=== PATIENT | male | born 1965 | race Caucasian/White ===

== ENCOUNTER 2021-08-05 10:14 | Emergency (ER) | payer MEDICARE ==
[2021-08-05] MEDS ORDERED: Zofran 4 MG/2 ML VIAL IV STA (10:23)
[2021-08-05] MEDS ORDERED: Sodium Chloride 0.9% 1000 ML 1,000 ML IV STA ×3 (10:23→17:00)
--- NOTE | 2021-08-05 10:54 | ERPHSYRPT ---
- History of Present Illness Time Seen by Provider: 08/05/21 10:20 Source: patient, family Exam Limitations: no limitations Patient Subjective Stated Complaint: Hypotension Triage Nursing Assessment: Patient brought back to ED via w/c and transferred to bed with assist of 1. Patient A+O X3. Patient's skin pale, cool and dry. Patient was at Dr. Berman's office and his blood pressure was 70/40 so patient was sent over for eval. Patient denies pain or discomfort. Lungs clear a/p anders. Physician History: Patient is a 56-year-old male who presents to the ER by wheelchair from Dr. Berman's office. He started in May of this year with an episode of sepsis which was due to a perforation of his colon and he did end up with an ileal ostomy. He was released from [facility] without surgery was done was readmitted with urinary tract sepsis in June. This time he has been out of [facility] for 2 days when his found his blood pressure to be very low at 70 he was tachycardic he was sweaty he was taken to the doctor's office where they had trouble getting a blood pressure at all. And he was immediately transferred to the ER. He has been told that the first episode of sepsis was from his bile the second from his urinary tract infection and now that he is some sort of a viral illness in the GI tract. We will try to obtain those records from [place]. 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 (Not documented) Associated Symptoms: diaphoresis, weakness, No abdominal pain, No chest pain, No cough, No nausea/vomiting, No rash, No shortness of breath Allergies/Adverse Reactions: No Known Drug Allergies Allergy (Unverified 08/05/21 16:35) Hx Influenza Vaccination/Date Given: No Hx Pneumococcal Vaccination/Date Given: No Immunizations Up to Date: Yes Travel Risk - International Travel Have you traveled outside of the country in past 3 weeks: No - Coronavirus Screening Are you exhibiting any of the following symptoms?: No Close contact with a COVID-19 positive Pt in past 14-21 Days: No - Vaccine Status Have you recieved a Covid-19 vaccination: No - Review of Systems Constitutional: Fever, Lethargy, Malaise, Night Sweats, Weakness, No Chills Eyes: No Symptoms Ears, Nose, & Throat: No Symptoms Respiratory: No Cough, No Dyspnea Cardiac: No Chest Pain, No Edema, No Syncope Abdominal/Gastrointestinal: No Abdominal Pain, No Nausea, No Vomiting, No Diarrhea Genitourinary Symptoms: No Dysuria Musculoskeletal: No Back Pain, No Neck Pain Skin: No Rash Neurological: No Dizziness, No Focal Weakness, No Sensory Changes Psychological: No Symptoms Endocrine: No Symptoms All Other Systems: Reviewed and Negative - Past Medical History Pertinent Past Medical History: Yes Neurological History: Stroke Cardiac History: No Pertinent History Respiratory History: No Pertinent History Endocrine Medical History: Diabetes Type II Musculoskeletal History: No Pertinent History GI Medical History: Esophageal Disorder, Other Psycho-Social History: Depression Male Reproductive Disorders: No Pertinent History Other Medical History: Stroke- May 2021. Ileostomy May 2021 - Past Surgical History Past Surgical History: Yes Neuro Surgical History: No Pertinent History Cardiac: Vascular Surgery Respiratory: No Pertinent History Gastrointestinal: No Pertinent History Genitourinary: No Pertinent History Musculoskeletal: No Pertinent History Male Surgical History: No Pertinent History Other Surgical History: aortic bypass 2017 - Social History Smoking Status: Former smoker Exposure to second hand smoke: No Drug Use: none Patient Lives Alone: No (lives with ex ) - Nursing Vital Signs Nursing Vital Signs: Initial Vital Signs Temperature 97.5 F 08/05/21 10:19 Pulse Rate 121 H 08/05/21 10:19 Respiratory Rate 18 08/05/21 10:19 Blood Pressure 85/63 08/05/21 10:19 O2 Sat by Pulse Oximetry 98 08/05/21 10:19 Pain Scale Pain Intensity 0 - Physical Exam General Appearance: mild distress, alert Eye Exam: PERRL/EOMI ENT Exam: normal ENT inspection, No pharyngeal erythema, No tonsillar exudate Neck Exam: supple, full range of motion, No meningismus Respiratory Exam: normal breath sounds, lungs clear, no respiratory distress Cardiovascular/Chest Exam: normal heart sounds, regular rate/rhythm, No murmur, No edema Gastrointestinal/Abdominal Exam: soft, non tender, no distention Extremity Exam: non-tender, normal range of motion, normal inspection, normal capillary refill Neurologic Exam: alert, oriented x 3, cooperative, bible teacher II-XII nml as tested, no rmal mood/affect, sensation nml, No motor deficits Skin Exam: normal color, warm, dry, No rash SpO2 Interpretation: normal SpO2: 98 O2 Delivery: Room Air Procedures - Central Line Time Of Procedure: 16:00 (Attempts were made to place subclavian central catheters both right and left without success.) Central Line Procedure: chlorahexadine prep, sterile drapes applied, Aseptic Technique Progress: After his failure to place a subclavian's on either the right or left side a sapna st x-ray was obtained which showed a pneumothorax on the right Dr. Frida Malik was called and did place a chest tube in the right hemithorax successfully. - Course Nursing assessment & vital signs reviewed: Yes EKG Interpreted by Me: RATE ([id number]), NORMAL AXIS, Non-specific ST Changes - Radiology Exams Chest X-ray Interpretation: Interpreted by me, Negative (Initial chest x-ray negat tio), Other (Post postprocedure chest x-ray shows a right pneumothorax) - CT Exams Abdomen/Pelvis CT Interpretation: Other (Chest CT was negative abdomen and pelvis was negative other than perhaps some inflammation inferior to the ostomy and thickened bladder wall.) Ordered Tests: Active Orders 24 hr Category Date Time Status CO2 Monitoring STAT Care 08/05/21 14:18 Completed EKG-ER Only STAT Care 08/05/21 10:23 Active IV Insertion STAT Care 08/05/21 10:23 Active ABDOMEN AND PELVIS W/0 CONTRAS [CT] Stat Exams 08/05/21 10:24 Completed CHEST 1 VIEW (PORTABLE) Stat Exams 08/05/21 10:24 Completed CHEST 1 VIEW (PORTABLE) Stat Exams 08/05/21 14:31 Completed CHEST 1 VIEW (PORTABLE) Stat Exams 08/05/21 16:30 Completed CHEST WITHOUT CONTRAST [CT] Stat Exams 08/05/21 10:31 Completed BLOOD CULTURE Stat Lab 08/05/21 11:14 Received CBC W DIFF Stat Lab 08/05/21 11:12 Completed CMP Routine Lab 08/05/21 11:12 Completed CULTURE,URINE Stat Lab 08/05/21 10:24 Received INFLUENZA A+B MARISEL Stat Lab 08/05/21 11:12 Completed Lactic Acid Stat Lab 08/05/21 11:16 Completed Lactic Acid Stat Lab 08/05/21 13:20 Completed Manual Differential NC Stat Lab 08/05/21 11:12 Completed [place] Screen Stat Lab 08/05/21 11:12 Completed TROPONIN Q3H Lab 08/05/21 11:12 Completed TROPONIN Q3H Lab 08/05/21 11:12 Completed TROPONIN Q3H Lab 08/05/21 16:15 Completed TROPONIN Q3H Lab 08/05/21 19:30 Ordered TROPONIN Q3H Lab 08/05/21 22:30 Ordered Standby STAT RT 08/05/21 14:56 Completed Medication Summary Generic Name Dose Route Start Last Admin Trade Name Freq PRN Reason Stop Dose Admin Sodium Chloride 1,000 mls @ 999 mls/hr 08/05/21 17:00 08/05/21 17:02 Sodium Chloride 0.9% 1000 Ml IV 08/05/21 18:00 999 mls/hr .Q1H1M STA Administration Discontinued Medications Generic Name Dose Route Start Last Admin Trade Name Freq PRN Reason Stop Dose Admin Flumazenil Confirm 08/05/21 13:13 Flumazenil 0.5 Mg/5 Ml Vial Administered 08/05/21 13:14 Dose 0.1 mg .ROUTE .STK-MED ONE Sodium Chloride 1,000 mls @ 999 mls/hr 08/05/21 10:23 08/05/21 12:31 Sodium Chloride 0.9% 1000 Ml IV 08/05/21 11:23 Infused .Q1H1M STA Infusion Sodium Chloride Confirm 08/05/21 11:03 Sodium Chloride 0.9% 1000 Ml Administered 08/05/21 11:04 Dose 1,000 mls @ ud .ROUTE .STK-MED ONE Sodium Chloride 1,000 mls @ 999 mls/hr 08/05/21 11:53 08/05/21 16:39 Sodium Chloride 0.9% 1000 Ml IV 08/05/21 12:53 Infused .Q1H1M STA Infusion Sodium Chloride Confirm 08/05/21 15:30 Sodium Chloride 0.9% 1000 Ml Administered 08/05/21 15:31 Dose 1,000 mls @ ud .ROUTE .STK-MED ONE Ceftriaxone Sodium/Dextrose 1 g in 50 mls @ 100 mls/hr 08/05/21 16:23 08/05/21 17:26 Rocephin 1 Gm-D5w 50 Ml Bag IV 08/05/21 16:52 Infused STAT STA Infusion Sodium Chloride Confirm 08/05/21 16:36 Sodium Chloride 0.9% 1000 Ml Administered 08/05/21 16:37 Dose 1,000 mls @ ud .ROUTE .STK-MED ONE Ceftriaxone Sodium/Dextrose Confirm 08/05/21 16:51 Rocephin 1 Gm-D5w 50 Ml Bag Administered 08/05/21 16:52 Dose 1 g in 50 mls @ ud IV .STK-MED ONE Lidocaine HCl Confirm 08/05/21 15:02 Lidocaine Hcl 1% 20 Ml Mdv 20 Ml Ml Administered 08/05/21 15:03 Dose 1 ml .ROUTE .STK-MED ONE Lidocaine HCl Confirm 08/05/21 16:23 Lidocaine Hcl 1% 20 Ml Mdv 20 Ml Ml Administered 08/05/21 16:24 Dose 1 ml .ROUTE .STK-MED ONE Midazolam HCl 10 mg 08/05/21 13:11 08/05/21 13:26 Midazolam Hcl 5 Mg/5 Ml Vial INTRANASAL 08/05/21 13:12 10 mg STAT ONE Administration Midazolam HCl Confirm 08/05/21 13:12 Midazolam Hcl 50 Mg/10 Ml Vial Administered 08/05/21 13:13 Dose 50 mg .ROUTE .STK-MED ONE Ondansetron HCl 4 mg 08/05/21 10:23 08/05/21 11:15 Ondansetron Hcl 4 Mg/2 Ml Vial IV 08/05/21 10:24 4 mg STAT STA Administration Ondansetron HCl Confirm 08/05/21 11:03 Ondansetron Hcl 4 Mg/2 Ml Vial Administered 08/05/21 11:04 Dose 4 mg .ROUTE .STK-MED ONE Lab/Rad Data: Laboratory Result Diagrams 08/05/21 11:12 08/05/21 11:12 Laboratory Results 08/05/21 08/05/21 08/05/21 Range/Units 16:15 14:22 13:20 WBC (4.0-10.5) K/mm3 RBC (4.1-5.6) M/mm3 Hgb (12.5-18.0) gm/dl Hct (42-50) % MCV (78-100) fl MCH (26-32) pg MCHC (32-36) g/dl RDW (11.5-14.0) % Plt Count (150-450) K/mm3 MPV (7.5-11.0) fl Gran % (36.0-66.0) % Eos # (Auto) (0-0.5) Absolute Lymphs (auto) (1.0-4.6) Absolute Monos (auto) (0.0-1.3) Lymphocytes % (24.0-44.0) % Monocytes % (0.0-12.0) % Eosinophils % (0.00-5.0) % Basophils % (0.0-0.4) % Absolute Granulocytes (1.4-6.9) Segmented Neutrophils (36.-66.) % Lymphocytes (Manual) (24-44) % Monocytes (Manual) (0.0-12.0) % Eosinophils (Manual) (0.00-3.0) % Basophils # (0-0.4) Platelet Estimate (NORMAL) RBC Morphology Sodium (137-145) mmol/L Potassium (3.5-5.1) mmol/L Chloride (98-107) mmol/L Carbon Dioxide (22-30) mmol/L Anion Gap (5-15) MEQ/L BUN (9-20) mg/dL Creatinine (0.66-1.25) mg/dL Estimated GFR ML/MIN Glucose (74-106) mg/dL Lactic Acid 2.2 H (0.4-2.0) Calcium (8.4-10.2) mg/dL Total Bilirubin (0.2-1.3) mg/dL AST (17-59) U/L ALT (0-50) U/L Alkaline Phosphatase (38-126) U/L Troponin I < 0.012 (0.000-0.034) ng/mL Serum Total Protein (6.3-8.2) g/dL Albumin (3.5-5.0) g/dL Urinalys Dipstick Clnc Urine Color (YELLOW) Urine Appearance (CLEAR) Urine pH (5-6) Ur Specific [place] (1.005-1.025) POC Urine Protein Conf (Negative) Urine Ketones (NEGATIVE) Urine Nitrite (NEGATIVE) Urine Bilirubin (NEGATIVE) Urine Urobilinogen (0-1) mg/dL Urine Leukocytes (NEGATIVE) Urine WBC (Auto) (0-5) /HPF Urine RBC (Auto) (0-2) /HPF U Epithel Cells (Auto) (FEW) /HPF Urine Bacteria (Auto) (NEGATIVE) /HPF Urine RBC (0-5) Ruperto/ul Urine Mucus (Auto) (NEGATIVE) /HPF Urine Yeast (Budding) (NEGATIVE) /HPF Urine Glucose (NEGATIVE) mg/dL Monoscreen (Negative) Influenza Type A Ag NEGATIVE (NEGATIVE) Influenza Type B Ag NEGATIVE (NEGATIVE) RSV (PCR) NEGATIVE (Negative) SARS-CoV-2 (PCR) NEGATIVE (NEGATIVE) 08/05/21 08/05/21 08/05/21 Range/Units 11:16 11:12 11:12 WBC (4.0-10.5) K/mm3 RBC (4.1-5.6) M/mm3 Hgb (12.5-18.0) gm/dl Hct (42-50) % MCV (78-100) fl MCH (26-32) pg MCHC (32-36) g/dl RDW (11.5-14.0) % Plt Count (150-450) K/mm3 MPV (7.5-11.0) fl Gran % (36.0-66.0) % Eos # (Auto) (0-0.5) Absolute Lymphs (auto) (1.0-4.6) Absolute Monos (auto) (0.0-1.3) Lymphocytes % (24.0-44.0) % Monocytes % (0.0-12.0) % Eosinophils % (0.00-5.0) % Basophils % (0.0-0.4) % Absolute Granulocytes (1.4-6.9) Segmented Neutrophils (36.-66.) % Lymphocytes (Manual) (24-44) % Monocytes (Manual) (0.0-12.0) % Eosinophils (Manual) (0.00-3.0) % Basophils # (0-0.4) Platelet Estimate (NORMAL) RBC Morphology Sodium 135 L (137-145) mmol/L Potassium 4.5 (3.5-5.1) mmol/L Chloride 81 L (98-107) mmol/L Carbon Dioxide 34 H (22-30) mmol/L Anion Gap 24.1 H (5-15) MEQ/L BUN 49 H (9-20) mg/dL Creatinine 4.90 H (0.66-1.25) mg/dL Estimated GFR 13.1 ML/MIN Glucose 256 H (74-106) mg/dL Lactic Acid 4.8 H (0.4-2.0) Calcium 9.6 (8.4-10.2) mg/dL Total Bilirubin 0.70 (0.2-1.3) mg/dL AST 31 (17-59) U/L ALT 32 (0-50) U/L Alkaline Phosphatase 209 H (38-126) U/L Troponin I < 0.012 < 0.012 (0.000-0.034) ng/mL Serum Total Protein 9.1 H (6.3-8.2) g/dL Albumin 4.4 (3.5-5.0) g/dL Urinalys Dipstick Clnc Urine Color (YELLOW) Urine Appearance (CLEAR) Urine pH (5-6) Ur Specific [place] (1.005-1.025) POC Urine Protein Conf (Negative) Urine Ketones (NEGATIVE) Urine Nitrite (NEGATIVE) Urine Bilirubin (NEGATIVE) Urine Urobilinogen (0-1) mg/dL Urine Leukocytes (NEGATIVE) Urine WBC (Auto) (0-5) /HPF Urine RBC (Auto) (0-2) /HPF U Epithel Cells (Auto) (FEW) /HPF Urine Bacteria (Auto) (NEGATIVE) /HPF Urine RBC (0-5) Ruperto/ul Urine Mucus (Auto) (NEGATIVE) /HPF Urine Yeast (Budding) (NEGATIVE) /HPF Urine Glucose (NEGATIVE) mg/dL Monoscreen (Negative) Influenza Type A Ag (NEGATIVE) Influenza Type B Ag (NEGATIVE) RSV (PCR) (Negative) SARS-CoV-2 (PCR) (NEGATIVE) 08/05/21 08/05/21 08/05/21 Range/Units 11:12 11:12 11:12 WBC 13.0 H (4.0-10.5) K/mm3 RBC 4.00 L (4.1-5.6) M/mm3 Hgb 11.5 L (12.5-18.0) gm/dl Hct 36.7 L (42-50) % MCV 91.8 (78-100) fl MCH 28.8 (26-32) pg MCHC 31.3 L (32-36) g/dl RDW 14.2 H (11.5-14.0) % Plt Count 528 H (150-450) K/mm3 MPV 9.7 (7.5-11.0) fl Gran % 73.1 H (36.0-66.0) % Eos # (Auto) 0.19 (0-0.5) Absolute Lymphs (auto) 2.54 (1.0-4.6) Absolute Monos (auto) 0.68 (0.0-1.3) Lymphocytes % 19.6 L (24.0-44.0) % Monocytes % 5.3 (0.0-12.0) % Eosinophils % 1.5 (0.00-5.0) % Basophils % 0.5 (0.0-0.4) % Absolute Granulocytes 9.47 H (1.4-6.9) Segmented Neutrophils 75 H (36.-66.) % Lymphocytes (Manual) 20 L (24-44) % Monocytes (Manual) 4 (0.0-12.0) % Eosinophils (Manual) 1 (0.00-3.0) % Basophils # 0.07 (0-0.4) Platelet Estimate INCREASED (NORMAL) RBC Morphology NORMAL Sodium (137-145) mmol/L Potassium (3.5-5.1) mmol/L Chloride (98-107) mmol/L Carbon Dioxide (22-30) mmol/L Anion Gap (5-15) MEQ/L BUN (9-20) mg/dL Creatinine (0.66-1.25) mg/dL Estimated GFR ML/MIN Glucose (74-106) mg/dL Lactic Acid (0.4-2.0) Calcium (8.4-10.2) mg/dL Total Bilirubin (0.2-1.3) mg/dL AST (17-59) U/L ALT (0-50) U/L Alkaline Phosphatase (38-126) U/L Troponin I (0.000-0.034) ng/mL Serum Total Protein (6.3-8.2) g/dL Albumin (3.5-5.0) g/dL Urinalys Dipstick Clnc Urine Color (YELLOW) Urine Appearance (CLEAR) Urine pH (5-6) Ur Specific [place] (1.005-1.025) POC Urine Protein Conf (Negative) Urine Ketones (NEGATIVE) Urine Nitrite (NEGATIVE) Urine Bilirubin (NEGATIVE) Urine Urobilinogen (0-1) mg/dL Urine Leukocytes (NEGATIVE) Urine WBC (Auto) (0-5) /HPF Urine RBC (Auto) (0-2) /HPF U Epithel Cells (Auto) (FEW) /HPF Urine Bacteria (Auto) (NEGATIVE) /HPF Urine RBC (0-5) Ruperto/ul Urine Mucus (Auto) (NEGATIVE) /HPF Urine Yeast (Budding) (NEGATIVE) /HPF Urine Glucose (NEGATIVE) mg/dL Monoscreen NEGATIVE (Negative) Influenza Type A Ag NEGATIVE (NEGATIVE) Influenza Type B Ag NEGATIVE (NEGATIVE) RSV (PCR) (Negative) SARS-CoV-2 (PCR) (NEGATIVE) 08/05/21 Range/Units 10:24 WBC (4.0-10.5) K/mm3 RBC (4.1-5.6) M/mm3 Hgb (12.5-18.0) gm/dl Hct (42-50) % MCV (78-100) fl MCH (26-32) pg MCHC (32-36) g/dl RDW (11.5-14.0) % Plt Count (150-450) K/mm3 MPV (7.5-11.0) fl Gran % (36.0-66.0) % Eos # (Auto) (0-0.5) Absolute Lymphs (auto) (1.0-4.6) Absolute Monos (auto) (0.0-1.3) Lymphocytes % (24.0-44.0) % Monocytes % (0.0-12.0) % Eosinophils % (0.00-5.0) % Basophils % (0.0-0.4) % Absolute Granulocytes (1.4-6.9) Segmented Neutrophils (36.-66.) % Lymphocytes (Manual) (24-44) % Monocytes (Manual) (0.0-12.0) % Eosinophils (Manual) (0.00-3.0) % Basophils # (0-0.4) Platelet Estimate (NORMAL) RBC Morphology Sodium (137-145) mmol/L Potassium (3.5-5.1) mmol/L Chloride (98-107) mmol/L Carbon Dioxide (22-30) mmol/L Anion Gap (5-15) MEQ/L BUN (9-20) mg/dL Creatinine (0.66-1.25) mg/dL Estimated GFR ML/MIN Glucose (74-106) mg/dL Lactic Acid (0.4-2.0) Calcium (8.4-10.2) mg/dL Total Bilirubin (0.2-1.3) mg/dL AST (17-59) U/L ALT (0-50) U/L Alkaline Phosphatase (38-126) U/L Troponin I (0.000-0.034) ng/mL Serum Total Protein (6.3-8.2) g/dL Albumin (3.5-5.0) g/dL Urinalys Dipstick Clnc MAIN LAB Urine Color LIGHT RED (YELLOW) Urine Appearance TURBID (CLEAR) Urine pH 5.5 (5-6) Ur Specific Blakes[place] >=1.030 (1.005-1.025) POC Urine Protein Conf 100 (Negative) Urine Ketones TRACE (NEGATIVE) Urine Nitrite NEGATIVE (NEGATIVE) Urine Bilirubin SMALL (NEGATIVE) Urine Urobilinogen 0.2 (0-1) mg/dL Urine Leukocytes LARGE (NEGATIVE) Urine WBC (Auto) >100 (0-5) /HPF Urine RBC (Auto) >101 (0-2) /HPF U Epithel Cells (Auto) RARE (FEW) /HPF Urine Bacteria (Auto) MANY (NEGATIVE) /HPF Urine RBC LARGE (0-5) Ruperto/ul Urine Mucus (Auto) SLIGHT (NEGATIVE) /HPF Urine Yeast (Budding) Few (NEGATIVE) /HPF Urine Glucose NEGATIVE (NEGATIVE) mg/dL Monoscreen (Negative) Influenza Type A Ag (NEGATIVE) Influenza Type B Ag (NEGATIVE) RSV (PCR) (Negative) SARS-CoV-2 (PCR) (NEGATIVE) - Progress Progress: unchanged Progress Note: 08/05/21 17:[address] Berman and it was elected to transfer this patient to a higher level of care because of renal failure. Discussed with : Bethany Ramsey (Dr. Mahajan was contacted regarding a new pneumothorax on the right and chest tube placement) - Departure Departure Disposition: Transfer Clinical Impression: Sepsis, Hypotension, Pneumothorax, right Condition: Critical Critical Care Time: No Critical Care Time(excluding separately billable procedures): Critical 135-164 mins Referrals: RENEA BERMAN [Primary Care Provider] - Follow up/PCP as directed Additional Instructions: Patient is accepted in transfer by Dr. Lainez at [facility]
[2021-08-05] MEDS ORDERED: Zofran 4 MG/2 ML VIAL ONE (11:03)
[2021-08-05] MEDS ORDERED: Sodium Chloride 0.9% 1000 ML 1,000 ML ONE ×3 (11:03→16:36)
--- NOTE | 2021-08-05 11:11 | XRAY ---
Indication: Sepsis. Comparison: None Portable chest is clear. Heart not enlarged. Bony thorax intact with mild degenerative changes.
[2021-08-05 11:27] LABS: Absolute Neutrophil Ct (ANC) 9.47 (1.4-6.9); Basophil (Absolute #) 0.07 (0-0.4); Eosinophil % 1.5 % (0.00-5.0); Eosinophil (Absolute #) 0.19 (0-0.5); Hematocrit 36.7 % (42-50); Hemoglobin 11.5 gm/dl (12.5-18.0); Lymphocyte (Absolute #) 2.54 (1.0-4.6); Lymphocytes % 19.6 % (24.0-44.0); Mean Cell Volume 91.8 fl (78-100); Mean Corpuscular Hemoglobin 28.8 pg (26-32); Mean Corpuscular Hgb Concent. 31.3 g/dl (32-36); Mean Platelet Volume 9.7 fl (7.5-11.0); Monocyte (Absolute #) 0.68 (0.0-1.3); Monocytes % 5.3 % (0.0-12.0); Neutrophil % 73.1 % (36.0-66.0); Platelet Count 528 K/mm3 (150-450); Red Cell Distribution Width 14.2 % (11.5-14.0)
[2021-08-05 11:49] LABS: ALBUMIN 4.4 g/dL (3.5-5.0); ALKALINE PHOSPHATASE 209 U/L (38-126); ANION GAP 24.1 MEQ/L (5-15); BLOOD UREA NITROGEN 49 mg/dL (9-20); CHLORIDE 81 mmol/L (98-107); Calcium 9.6 mg/dL (8.4-10.2); Carbon Dioxide 34 mmol/L (22-30); EST GLOMERULAR FILTRATION RATE 13.1 ML/MIN; Glucose 256 mg/dL (74-106); Potassium 4.5 mmol/L (3.5-5.1); SGOT/AST 31 U/L (17-59); SGPT/ALT 32 U/L (0-50); SODIUM 135 mmol/L (137-145); TROPONIN < 0.012 ng/mL (0.000-0.034); Total Protein 9.1 g/dL (6.3-8.2)
[2021-08-05 12:18] LABS: INFLUENZA A NEGATIVE (NEGATIVE); INFLUENZA B NEGATIVE (NEGATIVE)
[2021-08-05] MEDS ORDERED: VERSED 5 MG/5 ML INTRANASAL ONE (13:11)
[2021-08-05] MEDS ORDERED: Versed 50 MG/ 10 Ml MDV ONE (13:12)
--- NOTE | 2021-08-05 13:12 | XRAY ---
Indication: Sepsis. Multiple contiguous axial images obtained through the chest without contrast. Comparison: None Lungs demonstrate mild pulmonary emphysema and minimal scattered peripheral fibrosis/scarring. No suspicious pulmonary mass/nodule, infiltrate, effusion, or pneumothorax. Heart not enlarged. Aorta is mildly arteriosclerotic without aneurysm. No pathologic mediastinal lymphadenopathy. Bony thorax intact with mild osteopenia and mild degenerative changes throughout the spine. CT abdomen/pelvis reported separately. Impression: 1. Pulmonary emphysema and scattered fibrosis/scarring. 2. Remaining CT chest without contrast exam is negative.
[2021-08-05] MEDS ORDERED: Romazicon 0.5 MG/5 ML Injection ONE (13:13)
--- NOTE | 2021-08-05 13:22 | XRAY ---
Indication: Sepsis. Status post bowel perforation May 2021. Multiple contiguous axial images obtained through the abdomen and pelvis without contrast. Comparison: None CT chest reported separately. Noncontrasted stomach and bowel loops appear nonobstructed with right upper quadrant diverting ileostomy. Just inferior to ostomy is a 1.9 x 5.0 x 2.9 cm focus of subcutaneous induration presumed postoperative though infection is not completely excluded on this noncontrast exam. Normal appendix. Tiny fluid right colic gutter. No walled off fluid collection or free air. Pancreas demonstrates a few punctate chronic pancreatitis calcifications. Urinary bladder demonstrates moderate circumferential wall thickening either due to incomplete distention versus cystitis. Remaining liver, gallbladder, pancreas, spleen, adrenal glands, kidneys, ureters, and bladder are unremarkable for noncontrast exam. Diffuse scattered vascular calcifications with distal aortobiiliac bypass grafts. Lack of IV contrast precludes further characterization. Osseous structures intact with mild osteopenia, mild multilevel degenerative spondylosis, and bilateral L4/L5 spondylolysis with 5-6 mm spondylolisthesis. Impression: 1. Intact right upper quadrant diverting ileostomy. Focal subcutaneous induration just inferior to ostomy presumed postoperative though infection not completely excluded in the right clinical setting. 2. Tiny indeterminant fluid right colic gutter. 3. Urinary bladder wall circumferential wall thickening either incomplete distention versus cystitis. 4. Incidental chronic pancreatitis calcifications, scattered arteriosclerotic disease with biiliac bypass grafts, and chronic bony findings.
--- NOTE | 2021-08-05 14:35 | XRAY ---
Indication: Failed central line placement. Pneumothorax. Comparison: August 05, 2021. Portable chest demonstrates new 30-40% right pneumothorax. Left lung remains clear. Heart and mediastinal structures within normal limits and not shifted.
[2021-08-05] MEDS ORDERED: XYLOCAINE 1% HCL 20 ML MDV ONE ×2 (15:02→16:23)
[2021-08-05 15:15] LABS: INFLUENZA A NEGATIVE (NEGATIVE); INFLUENZA B NEGATIVE (NEGATIVE); RESPIRATORY SYNCTIAL VIRUS NEGATIVE (Negative); SARS-CoV-2 Xpert Express NEGATIVE (NEGATIVE)
[2021-08-05] MEDS ORDERED: ROCEPHIN 1 Gm-D5w 50 ml Bag** 1 G/50 ML IVPB IV STA (16:23)
--- NOTE | 2021-08-05 16:31 | PCM.CONS ---
History of Present Illness - Reason for Consult Chief Complaint: poor peripheral IV access Date of Consultation Date: 08/05/21 Reason for Consult: IV access Requesting Provider: ER physician Consulting Provider: JUDIE PÉREZ History of Present Illness: Mr.JONES SANTOYO is a 56 year old male. - Past Medical History Past Medical History: Yes Neurological History: Stroke Cardiac History: No Pertinent History Respiratory History: No Pertinent History Endocrine Medical History: Diabetes Type II Musculoskelatal History: No Pertinent History GI Medical History: Esophageal Disorder, Other Pyscho-Social History: Depression Male Reproductive Disorders: No Pertinent History Comment: Stroke- May 2021. Ileostomy May 2021 - Past Surgical History Past Surgical History: Yes Neuro Surgical History: No Pertinent History Cardiac History: Vascular Surgery Respiratory Surgery: No Pertinent History GI Surgical History: No Pertinent History Genitourinary Surgical Hx: No Pertinent History Musculskeletal Surgical Hx: No Pertinent History Male Surgical History: No Pertinent History Other Surgical History: aortic bypass 2017 - Social History Smoking Status: Former smoker Exposure to second hand smoke: No Alcohol: None Drug Use: none - Physical Exam Vital Signs: Vital Signs - 24 hr Temp Pulse Resp BP Pulse Ox 08/05/21 15:00 114 H 22 86/59 97 08/05/21 14:00 97.6 F 114 H 20 79/50 97 08/05/21 13:00 116 H 20 78/59 95 08/05/21 11:31 97.6 F 116 H 18 104/75 94 L 08/05/21 11:14 118 H 18 104/75 95 08/05/21 10:54 98 08/05/21 10:19 97.5 F 121 H 18 85/63 98 Results - Labs Lab/Micro Results: Lab Results-Last 24 Hours 08/05/21 08/05/21 08/05/21 Range/Units 11:12 11:12 11:12 WBC 13.0 H (4.0-10.5) K/mm3 RBC 4.00 L (4.1-5.6) M/mm3 Hgb 11.5 L (12.5-18.0) gm/dl Hct 36.7 L (42-50) % MCV 91.8 (78-100) fl MCH 28.8 (26-32) pg MCHC 31.3 L (32-36) g/dl RDW 14.2 H (11.5-14.0) % Plt Count 528 H (150-450) K/mm3 MPV 9.7 (7.5-11.0) fl Gran % 73.1 H (36.0-66.0) % Eos # (Auto) 0.19 (0-0.5) Absolute Lymphs (auto) 2.54 (1.0-4.6) Absolute Monos (auto) 0.68 (0.0-1.3) Lymphocytes % 19.6 L (24.0-44.0) % Monocytes % 5.3 (0.0-12.0) % Eosinophils % 1.5 (0.00-5.0) % Basophils % 0.5 (0.0-0.4) % Absolute Granulocytes 9.47 H (1.4-6.9) Basophils # 0.07 (0-0.4) Sodium (137-145) mmol/L Potassium (3.5-5.1) mmol/L Chloride (98-107) mmol/L Carbon Dioxide (22-30) mmol/L Anion Gap (5-15) MEQ/L BUN (9-20) mg/dL Creatinine (0.66-1.25) mg/dL Estimated GFR ML/MIN Glucose (74-106) mg/dL Lactic Acid (0.4-2.0) Calcium (8.4-10.2) mg/dL Total Bilirubin (0.2-1.3) mg/dL AST (17-59) U/L ALT (0-50) U/L Alkaline Phosphatase (38-126) U/L Troponin I (0.000-0.034) ng/mL Serum Total Protein (6.3-8.2) g/dL Albumin (3.5-5.0) g/dL Monoscreen NEGATIVE (Negative) Influenza Type A Ag NEGATIVE (NEGATIVE) Influenza Type B Ag NEGATIVE (NEGATIVE) RSV (PCR) (Negative) SARS-CoV-2 (PCR) (NEGATIVE) 08/05/21 08/05/21 08/05/21 Range/Units 11:12 11:12 11:16 WBC (4.0-10.5) K/mm3 RBC (4.1-5.6) M/mm3 Hgb (12.5-18.0) gm/dl Hct (42-50) % MCV (78-100) fl MCH (26-32) pg MCHC (32-36) g/dl RDW (11.5-14.0) % Plt Count (150-450) K/mm3 MPV (7.5-11.0) fl Gran % (36.0-66.0) % Eos # (Auto) (0-0.5) Absolute Lymphs (auto) (1.0-4.6) Absolute Monos (auto) (0.0-1.3) Lymphocytes % (24.0-44.0) % Monocytes % (0.0-12.0) % Eosinophils % (0.00-5.0) % Basophils % (0.0-0.4) % Absolute Granulocytes (1.4-6.9) Basophils # (0-0.4) Sodium 135 L (137-145) mmol/L Potassium 4.5 (3.5-5.1) mmol/L Chloride 81 L (98-107) mmol/L Carbon Dioxide 34 H (22-30) mmol/L Anion Gap 24.1 H (5-15) MEQ/L BUN 49 H (9-20) mg/dL Creatinine 4.90 H (0.66-1.25) mg/dL Estimated GFR 13.1 ML/MIN Glucose 256 H (74-106) mg/dL Lactic Acid 4.8 H (0.4-2.0) Calcium 9.6 (8.4-10.2) mg/dL Total Bilirubin 0.70 (0.2-1.3) mg/dL AST 31 (17-59) U/L ALT 32 (0-50) U/L Alkaline Phosphatase 209 H (38-126) U/L Troponin I < 0.012 < 0.012 (0.000-0.034) ng/mL Serum Total Protein 9.1 H (6.3-8.2) g/dL Albumin 4.4 (3.5-5.0) g/dL Monoscreen (Negative) Influenza Type A Ag (NEGATIVE) Influenza Type B Ag (NEGATIVE) RSV (PCR) (Negative) SARS-CoV-2 (PCR) (NEGATIVE) 08/05/21 Range/Units 14:22 WBC (4.0-10.5) K/mm3 RBC (4.1-5.6) M/mm3 Hgb (12.5-18.0) gm/dl Hct (42-50) % MCV (78-100) fl MCH (26-32) pg MCHC (32-36) g/dl RDW (11.5-14.0) % Plt Count (150-450) K/mm3 MPV (7.5-11.0) fl Gran % (36.0-66.0) % Eos # (Auto) (0-0.5) Absolute Lymphs (auto) (1.0-4.6) Absolute Monos (auto) (0.0-1.3) Lymphocytes % (24.0-44.0) % Monocytes % (0.0-12.0) % Eosinophils % (0.00-5.0) % Basophils % (0.0-0.4) % Absolute Granulocytes (1.4-6.9) Basophils # (0-0.4) Sodium (137-145) mmol/L Potassium (3.5-5.1) mmol/L Chloride (98-107) mmol/L Carbon Dioxide (22-30) mmol/L Anion Gap (5-15) MEQ/L BUN (9-20) mg/dL Creatinine (0.66-1.25) mg/dL Estimated GFR ML/MIN Glucose (74-106) mg/dL Lactic Acid (0.4-2.0) Calcium (8.4-10.2) mg/dL Total Bilirubin (0.2-1.3) mg/dL AST (17-59) U/L ALT (0-50) U/L Alkaline Phosphatase (38-126) U/L Troponin I (0.000-0.034) ng/mL Serum Total Protein (6.3-8.2) g/dL Albumin (3.5-5.0) g/dL Monoscreen (Negative) Influenza Type A Ag NEGATIVE (NEGATIVE) Influenza Type B Ag NEGATIVE (NEGATIVE) RSV (PCR) NEGATIVE (Negative) SARS-CoV-2 (PCR) NEGATIVE (NEGATIVE) - Radiology Impressions Radiology Exams & Impressions: Radiology Procedures Category Date Time Status ABDOMEN AND PELVIS W/0 CONTRAS [CT] Stat Exams 08/05/21 10:24 Completed CHEST 1 VIEW (PORTABLE) Stat Exams 08/05/21 10:24 Completed CHEST 1 VIEW (PORTABLE) Stat Exams 08/05/21 14:31 Completed CHEST WITHOUT CONTRAST [CT] Stat Exams 08/05/21 10:31 Completed - Other Procedures and Tests Consulted for IV access after ER staff multiple unsuccessful attempts. Risks and benefits of midline IV placement discussed with patient. Patient agrees and wishes to proceed. Right upper arm examined with ultrasound guidance and target vessel right basilic vein identified and appropriate. Right arm sterile prep and drape 2%CHG70%IPA and allowed 3 minute dry time. Skin and subqutaneous tissue over target vessel anesthetized with 5 cc 1% lidocaine. Using a 4 Fr. Power Assure mini access kit, the right basilic vein was cannulated with a 21ga X 7 cm needle. A 40 cm 0.46 mm Nitinol wire was passed through the needle into the vessel easily and the needle was withdrawn. Wire placement within the vessel was confirmed with ultrasound in both the short and long axis. Next, a 4 Fr. 10 cm catheter was introduced over the wire into the vessel and the wire was withdrawn intact. There was immediate venous blood return and the catheter was then easily flushed with 0.9 normal saline. A sterile occlusive dressing was applied. There were 2 attempts. The patient tolerated the procedure well and there were no complications.
[2021-08-05 16:43] LABS: Appearance TURBID (CLEAR); Bilirubin SMALL (NEGATIVE); Dipstick done @ ? MAIN LAB; Glucose NEGATIVE (NEGATIVE); Ketones TRACE (NEGATIVE); Nitrite NEGATIVE (NEGATIVE); Ph 5.5 (5-6); Protein,Urine Dip 100 (Negative); RBC LARGE Ery/ul (0-5); Specific Gravity >=1.030 (1.005-1.025); Urobilinogen 0.2 mg/dL (0-1)
[2021-08-05 16:46] LABS: Bacteria MANY /HPF (NEGATIVE); Budding Yeast Few /HPF (NEGATIVE); Epithelial Cells RARE /HPF (FEW); Mucus SLIGHT /HPF (NEGATIVE); RBC >101 /HPF (0-2); WBC >100 /HPF (0-5)
--- NOTE | 2021-08-05 16:50 | XRAY ---
Indication: Chest tube placement. Comparison: Taken earlier in the day. Portable chest demonstrates new right chest tube with tip projecting over the apex. No pneumothorax. Remaining heart and lungs unremarkable.
[2021-08-05] MEDS ORDERED: ROCEPHIN 1 Gm-D5w 50 ml Bag** 1 G/50 ML IVPB IV ONE (16:51)
[2021-08-05 17:18] LABS: Eosinophil 1 % (0.00-3.0); Lymphocytes 20 % (24-44); Monocyte 4 % (0.0-12.0); Neutrophils 75 % (36.-66.); Total Cells Counted 100
[2021-08-05 17:19] LABS: Platelet Estimate INCREASED (NORMAL)
[2021-08-05 18:00] VITALS: PULSE 96
[2021-08-05 18:04] VITALS: BP 99/63; O2SAT 97
--- NOTE | 2021-08-06 11:36 | CONS ---
CONSULT DATE: 08/05/2021 REASON FOR CONSULT: I was asked to see in consult for post attempted line placement right pneumothorax. HISTORY: The patient is a 56-year-old gentleman with multiple medical problems. History of aorto-bifemoral by Dr. Walls in the past, had multiple chronic hernia hernias. He unfortunately stayed home with the incarcerated hernia perforation for several days and was at [facility] a couple months ago with sepsis. He was taken emergently to the OP room and underwent resection of perforated bowel washout and closure of his hernia. Because of his extremely ill phase, he was given a diverting ostomy at the time given his septic shock. He was actually at [facility] a week or so ago. His ostomy has been working all right. His CT scans have been stable. He came for medical reasons to the emergency room. He had poor peripheral access. The emergency room doctor attempted line placement resulting in large right pneumothorax. Dr. Jourdan Ahmadi was regional coordinator but was tied up elsewhere and asked the emergency room to go ahead and put the chest tube in at that time. I came back through expecting the chest tube had been placed and to check on the patient. It had been an hour and a half and anesthesia had been messing around with line access and the chest tube was still not in place. Fortunately the patient still had a blood pressure and was awake with saturations 93%. It was felt he needed chest tube placed at this point. He was explained the risk of bleeding, infection, aches and pains, persistent air leak possibly requiring other procedure as well as chest tube placement for a few days if his lung remained expanded a few days. PAST MEDICAL HISTORY: Diabetes mellitus type II, peripheral artery disease, aortoiliac occlusive disease, aorto-bifemoral by Dr. Walls. He apparently has had hernias for some time. He has diabetes and history of smoking in the past. He had urinary tract infection. PAST SURGICAL HISTORY: Bowel resection, ileostomy, aortobifemoral and ankle in the past. HOME MEDICATIONS: He had been on acetaminophen and aspirin, budesonide, clopidogrel in the past. He has been on Flomax, fluconazole, Lantus, Lipitor, magnesium oxide, Medi-Honey, NovoLog, omeprazole, potassium chloride. ALLERGIES: NKDA. FAMILY HISTORY: Negative in regards to this specificproblem. SOCIAL HISTORY: History of smoking in the past. No alcohol use currently. REVIEW OF SYSTEMS: Fourteen systems reviewed pertinent as noted per admission assessment. He was having a little bit of shortness of breath and some right-sided chest pain since line attempt per the emergency room physician. PHYSICAL EXAMINATION: GENERAL: A chronically gentleman. HEENT: Sclera nonicteric. NECK: No JVD. CHEST: Equal excursion but again on x-ray he had sizeable pneumothorax on the right. CVS: Regular rate and rhythm. ABDOMEN: Soft. He has got semisolid liquidy stool in his right lower quadrant ostomy. EXTREMITIES: No cyanosis. NEURO: He is alert, responding appropriately when I explained the procedure to him. PSYCH: Appropriate mood and affect. LAB DATA AND TESTS: Saturation 93%. Vital signs are stable as per the emergency room monitor. Labs reviewed from the emergency room. IMPRESSION: A 56-year-old gentleman with multiple medical issues, in for medical reasons. He had poor peripheral access. He had line attempt by emergency room physician. Unfortunately, he developed a right sided pneumothorax. Anesthesia spent some time putting in a midline. However, he obviously needs a chest tube as he has had this pneumothorax more than an hour and a half. Saturations are lower. We explained risks and benefits but not limited to bleeding or infection, risk of persistent air leak, risk of empyema, infection but not limited to, possible failure to heal possibly requiring other procedures. General risk of aches and pains but not limited to. He is agreeable to the planned procedure and signed the consent in the emergency room. As the emergency room had not done the tube yet it was felt best that I just go ahead and put the chest tube in now. The patient is agreeable to have me do so.
--- NOTE | 2021-08-06 12:01 | OP ---
SURGERY DATE/TIME: 08/05/2021 1600 PREOPERATIVE DIAGNOSIS: Status post central line placement attempt by another physician with resultant right pneumothorax. POSTOPERATIVE DIAGNOSIS: Status post central line placement attempt by another physician with resultant right pneumothorax. PROCEDURE: Right thoracostomy tube placement 27 [place]. SURGEON: Dr. Luis Antonio Hicks. ANESTHESIA: Local. INDICATIONS: As noted above. Risks and benefits explained in detail and not limited to and consent obtained. DESCRIPTION OF PROCEDURE AND FINDINGS: After official time out and no disagreement with planned procedure, he was prepped and draped in the usual sterile fashion. 1% lidocaine local was infiltrated, 18 cc. A 1.5 cm skin sylvie was made and dissection carried down the chest wall and then carefully over the top of the rib. Popped in with a clamp. A good whoosh of air was noted. The 24 chest tube was carefully directed in attempt there was no trocar there, what was attempted to be a direct cephalad superior as well as possible. There was big condensation in the tube. Clinically seemed to be in good position and secured with 0 Prolene x2, secured to the [facility] container to be set at 20 cm of water suction. Sterile dressing applied. The patient tolerated the procedure well. There were no immediate complications.
== END 2021-08-05 18:34 | disposition short-term general hospital (02) ==
LOC: ED 10:14
DX: A09 Infectious gastroenteritis and colitis, unspecified (principal); R65.20 Severe sepsis without septic shock; N17.9 Acute kidney failure, unspecified; I95.9 Hypotension, unspecified; J93.83 Other pneumothorax; R00.0 Tachycardia, unspecified; E11.9 Type 2 diabetes mellitus without complications
CPT/HCPCS: 0241U; 32551; 36000; 36415; 36556; 36680; 51702; 71045; 71250; 74176; 76942; 80053; 81001; 83605; 84484; 85025; 86140; 86308; 87040; 87045; 87046; 87086; 87400; 93005; 94799; 96360; 96374; 96375; 99285; 99291; 99292; 36410; 87077; 87186; J0696; J2250; J2405